=== PATIENT | female | born 1980 | race Caucasian/White ===

== ENCOUNTER 2020-08-15 11:07 | Outpatient (REF) | payer OTHER, SELFPAY | END 2020-08-15 11:08 | disposition home or self-care (01) | LOC: HO.LAB 11:07 | PROVIDERS: PCP Internal Medicine; Visit Provider Internal Medicine | DX: Z20.822 Contact with and (suspected) exposure to COVID-19 (principal) | CPT/HCPCS: 36415; C9803; U0003 ==

== ENCOUNTER 2024-12-14 13:22 | Emergency (ER) | payer OTHER, SELFPAY ==
[2024-12-14] VITALS (10 sets, daily range): BP systolic 105–160; BP diastolic 53–110; PULSE 78–110; RESP 16–18; TEMP 36.5–37.2; O2SAT 96–100; BMI 40.2
--- NOTE | ~2024-12-14 | CT_ITS ---
CLINICAL HISTORY: headcahe, lightheaded dizzy, N CT head without contrast Comparison: None Findings: No intra-axial mass, midline shift, hydrocephalus, or acute hemorrhage. No significant atrophy-like change or white matter disease. The visualized paranasal sinuses and mastoid air cells are normal. The orbits are within normal limits. There is no acute skull fracture. IMPRESSION: 1. No acute intracranial findings. This document has been electronically signed by: Hortensia Vail MD on 12/14/2024 17:59:35
--- NOTE | ~2024-12-14 | XR_ITS ---
EXAMINATION: XR CHEST 1 VIEW HISTORY: Lightheadedness/fatigue COMPARISON: There are no prior studies for comparison. FINDINGS: A single AP portable view of the chest performed at 2:33 PM is submitted. The lungs are expanded and clear. There is no pleural effusion, pneumothorax, or pulmonary vascular congestion. The heart is normal in size. The bones are intact. XR/XR chest 1V IMPRESSION: Clear lungs. Electronically signed by: Radames Pierre MD 12/14/2024 02:50 PM EDT
--- NOTE | 2024-12-14 13:34 | ECG_ITS ---
Test Reason : DIZZINESS Blood Pressure : */* mmHG Vent. Rate : 99 BPM Atrial Rate : 99 BPM P-R Int : 134 ms QRS Dur : 58 ms QT Int : 358 ms P-R-T Axes : 12 31 51 degrees QTcB Int : 459 ms Normal sinus rhythm Cannot rule out Anterior infarct , age undetermined Abnormal ECG When compared with ECG of 14-Feb-2014 22:39, T wave inversion no longer evident in Inferior leads Referred By: Generic ED Physician Electronically Signed By: DAWIT BARON MD
[2024-12-14] MEDS: 0.9 % Sodium Chloride 1,000 ML 999 ML IV ×2 (14:08→16:00)
[2024-12-14] MEDS: Meclizine HCl 25 MG TABLET PO (14:15)
[2024-12-14 14:26] LABS: Glucose, Whole Blood 262 mg/dL (60-115)
--- NOTE | 2024-12-14 14:39 | ED_ITS ---
HPI - General Adult General Chief complaint: Dizziness Stated complaint: WEAKNESS DIZZINESS Time Seen by Provider: 12/14/24 13:37 Source: patient, EMS, RN notes reviewed and old records reviewed Mode of arrival: EMS History of Present Illness ED Provider: Noa Luu PA-C HPI narrative: 44-year-old female with no significant past medical history presenting to the ED via EMS complaining of sudden onset palpitations, fatigue, lightheadedness, headache, neck pain, abdominal discomfort and diarrhea x this afternoon. States she felt like her blood pressure was elevated and took 2 pills of 25 mg of Metoprolol. States she was previously prescribed metoprolol for palpitations. Denies vision change or loss, syncope, room spinning dizziness, CP/SOB, vomiting, dysuria/hematuria Related Data Allergies Allergy/AdvReac Type Severity Reaction Status Date / Time No Known Allergies Allergy Verified 12/14/24 13:31 Review of Systems 2 Review of Systems: Yes all other systems are reviewed and are negative Constitutional: Constitutional: Reports as per HPI Neurologic: Denies Abnormal speech present [facility] Past Medical History Attestation statement: The following information was validated with the patient. Source: old records reviewed Social History Social History Advance Directives: No Advance Directives Information Provided: Yes Do you have a plan to hurt others: No Plan Physical Exam ED Vital Signs: Vital Signs - 24 hr 12/14/24 13:28 12/14/24 14:03 12/14/24 14:09 Temperature 97.7 F Pulse Rate 96 94 95 Respiratory Rate 16 Blood Pressure 106/68 112/53 L 110/64 Pulse Oximetry 96 Oxygen Delivery Method Room Air 12/14/24 14:15 12/14/24 16:35 12/14/24 16:36 Temperature 98.9 F Pulse Rate 98 90 91 Respiratory Rate 16 Blood Pressure 109/56 L 121/80 123/84 Pulse Oximetry 100 Oxygen Delivery Method Room Air 12/14/24 16:40 12/14/24 16:44 Temperature Pulse Rate 92 86 Respiratory Rate Blood Pressure 117/80 118/70 Pulse Oximetry Oxygen Delivery Method BMI result Body Mass Index 40.2 Const General: cooperative, healthy appearing, no acute distress and anxious Orientation/consciousness: patient oriented x3 Limitations: no limitations HENMT Head: Yes normal to inspection and Yes atraumatic Ears: hearing grossly normal bilaterally General nose exam: Normal external nose present Face and sinus: Yes normal facial exam Mouth: Normal oral and palatal mucosa present Throat: Yes posterior oropharynx normal Eyes General: appearance normal, both eyes and all related structures Pupils: Equal, round and reactive pupils present EOM: EOMs intact bilaterally Neck Neck: Yes normal visual inspection and Yes no meningeal signs Resp Effort & Inspection: normal respiratory effort and no respiratory distress Auscultation: clear to auscultation bilaterally, no crackles, no rhonchi and no wheezes Cardio Rate: regular rate Heart sounds: S1 normal heart sound present and S2 normal heart sound present GI Inspection: Yes normal to inspection Palpation (GI): Soft to palpation, nontender, no guarding and not rigid General: Yes no CVA tenderness Back/Spine/Pelvis Back: no CVA tenderness Skin Rashes: no rashes Wounds: no wounds Neuro General: patient oriented x3, gait normal (No ataxia), tone normal, moves all extremities, no meningeal signs, no focal motor deficits and CN's II-XI intact bilaterally Cranial nerves: Yes CN's II-XII intact bilaterally and Yes Equal, round and reactive pupils present Cognition (Neuro): normal cognition Speech: No Abnormal speech present Gait exam (Neuro): Normal gait present Motor exam (neuro): 5/5 motor strength present throughout, Pronator motor function not present and no tremor noted Coordination: [id number] test normal Romberg Test: Negative Extrem General: Yes normal to inspection and Yes no pedal edema Course Course Course Narrative: -1554--leukocytosis of 22.2 > appears acute on chronic with progressive increasing leukocytosis since 2019 > denies any steroid use. Will refer to hematology for further workup. No evidence of infection at this time. Low suspicion for severe sepsis -labs otherwise reassuring -SARs negative XR chest 1V IMPRESSION: Clear lungs. > patient ambulating in the ED without difficulty. Reports symptomatic improvement at present, asymptomatic. -orthostatic vital signs negative -repeat troponin with additional increase to 7.7 > will obtain additional repeat -UA contaminated and not infected. negative CT head/brain wo IV con IMPRESSION: 1. No acute intracranial findings. -1900--ED care transferred to ADAMA Tomlinson pending repeat troponin and anticipated discharge Reevaluation(s) Reevaluation #1: Jayashree Tomlinson PA-C: Patient Sign Out occurred on at 630 pm. After a detailed discussion of the patient's case, care was transferred from Noa Luu PA-C to Jayashree Tomlinson PA-C pending last troponin. Although the 3rd troponin is detectable this is not significant for ischemia or above abnormal value. Patient is stable to be discharged home has follow up in place no changes to plan. . Time: 19:12 Medications Administered Discontinued Medications Generic Name Dose Route Start Last Admin Trade Name Kenny PRN Reason Stop Dose Admin Sodium Chloride 1,000 mls @ 999 mls/hr 12/14/24 14:15 12/14/24 15:09 Ns IV 12/14/24 15:15 Infused .Q1H1M KIN Infusion Sodium Chloride 1,000 mls @ 999 mls/hr 12/14/24 16:00 12/14/24 16:00 Ns IV 12/14/24 17:00 999 mls/hr .Q1H1M KIN Administration Meclizine HCl 25 mg 12/14/24 14:03 12/14/24 14:15 Meclizine Hcl 25 Mg Tablet PO 12/14/24 14:04 25 mg ONCE ONE Administration Medical Decision Making Medical Decision Making MDM Narrative: 44-year-old female with no significant past medical history presenting to the ED via EMS complaining of sudden onset palpitations, fatigue, lightheadedness, headache, neck pain, abdominal discomfort and diarrhea x this afternoon. On exam vital signs stable, NAD, anxious, no focal neuro deficits, lungs CTA, abdomen is soft and nontender. Concern for atypical ACS vs gastroenteritis vs metabolic abnormalities. Lower suspicion for ICH, CVA/TIA, PE, appendicitis/diverticulitis Plan: EKG, labs, UA, CXR, head CT, orthostatics, viral testing, IVF, meclizine, re-evaluate Please refer to course for remaining clinical decision making, interpretation of labs/imaging results, and discussions with consultants and/or family members. Differential Diagnosis Differential Diagnoses: The differential diagnosis associated with the presentation includes As above Admission/Observation Consideration of admission/observation: Escalation of care including admission/observation considered Lab Data MDM Lab Attestation statement: I reviewed the patient's lab results. 12/14/24 14:23 12/14/24 14:23 Labs: Lab Results 12/14/24 12/14/2425 Range/Units 14:07 14:14 14:23 WBC 22.2 H (4.8-10.8) X10*3/uL RBC 4.75 (4.20-5.50) X10*6/uL Hgb 14.0 (12.0-16.0) g/dl Hct 43.5 (37.0-47.0) % MCV 91.6 (80.0-98.0) fL MCH 29.5 (27.0-33.0) pg MCHC 32.2 (31.0-35.0) g/dl RDW 13.2 (11.0-16.0) % Plt Count 189 (160-400) X10*3/uL MPV 11.4 (9.4-12.3) fL Immature Gran % (Auto) 0.8 H (0.0-0.4) % Neut % (Auto) 85.5 H (45-73) % Lymph % (Auto) 10.8 L (20-40) % [place] % (Auto) 2.2 (2-11) % Eos % (Auto) 0.4 (0-4) % Baso % (Auto) 0.3 (0-2) % Lymph # (Auto) 2.4 (1.2-4.9) X10*3/uL [place] # (Auto) 0.5 (0.1-1.2) X10*3/uL Eos # (Auto) 0.1 (0.0-0.4) X10*3/uL Baso # (Auto) 0.1 (0.0-0.2) X10*3/uL Abs Immat Gran (auto) 0.17 H (0.00-0.03) X10*3/uL Absolute Neuts (auto) 19.0 H (2.0-8.3) x10*3/uL Absolute Nucleated RBC 0.000 (0.0-0.012) X10*3/uL Nucleated RBC % (auto) 0.0 (0.0-0.2) /100WBC Sodium 140 (135-145) mmol/L Potassium 3.5 (3.3-5.1) mmol/L Chloride 104 (96-108) mmol/L Carbon Dioxide 19 L (22-29) mmol/L Anion Gap 21 H (12-20) BUN 13 (9-16) mg/dL Creatinine 1.25 (0.5-1.4) mg/dL Estim Creat Clear Calc 60.4 Estimated GFR 46 POC Glucose 262 H (60-115) mg/dL Random Glucose 258 H (60-115) mg/dL Calcium 9.1 (8.4-10.2) mg/dL Magnesium 2.2 (1.6-2.6) mg/dL Total Bilirubin 0.4 (0.0-1.0) mg/dL Direct Bilirubin 0.1 (0.0-0.5) mg/dL AST 23 (5-31) U/L ALT 10 (0-31) U/L Alkaline Phosphatase 68 (39-117) U/L Troponin I High Sens < 2.7 (<3.5-17.0) ng/L Total Protein 7.7 (6.5-8.0) g/dL Albumin 3.9 (3.5-5.0) g/dL Lipase 20 (8-78) U/L TSH 1.26 (0.32-4.0) uIU/mL Urine Color Urine Appearance Urine pH (5.0-9.0) Ur Specific [place] (1.005-1.025) Urine Protein (Neg-Trace) mg/dL Urine Glucose (UA) (Negative) mg/dL Urine Ketones (Negative) mg/dL Urine Blood (Negative) Urine Nitrite (Negative) Ur Leukocyte Esterase (Negative) Urine RBC (0-2) /HPF Urine WBC (0-5) /HPF Ur Squamous Epith Cells (0-2) /HPF Urine Bacteria (None Seen) Hyaline Casts (0-2) /LPF Urine Test (NEGATIVE) Influenza Type A (PCR) NEGATIVE (Negative) Influenza Type B (PCR) NEGATIVE (Negative) RSV RNA Qual (PCR) NEGATIVE (Negative) SARS-CoV-2 RNA (RT-PCR) NEGATIVE (Negative) 12/14/24 12/14/24 12/14/24 Range/Units 15:30 16:33 18:28 WBC (4.8-10.8) X10*3/uL RBC (4.20-5.50) X10*6/uL Hgb (12.0-16.0) g/dl Hct (37.0-47.0) % MCV (80.0-98.0) fL MCH (27.0-33.0) pg MCHC (31.0-35.0) g/dl RDW (11.0-16.0) % Plt Count (160-400) X10*3/uL MPV (9.4-12.3) fL Immature Gran % (Auto) (0.0-0.4) % Neut % (Auto) (45-73) % Lymph % (Auto) (20-40) % [place] % (Auto) (2-11) % Eos % (Auto) (0-4) % Baso % (Auto) (0-2) % Lymph # (Auto) (1.2-4.9) X10*3/uL [place] # (Auto) (0.1-1.2) X10*3/uL Eos # (Auto) (0.0-0.4) X10*3/uL Baso # (Auto) (0.0-0.2) X10*3/uL Abs Immat Gran (auto) (0.00-0.03) X10*3/uL Absolute Neuts (auto) (2.0-8.3) x10*3/uL Absolute Nucleated RBC (0.0-0.012) X10*3/uL Nucleated RBC % (auto) (0.0-0.2) /100WBC Sodium (135-145) mmol/L Potassium (3.3-5.1) mmol/L Chloride (96-108) mmol/L Carbon Dioxide (22-29) mmol/L Anion Gap (12-20) BUN (9-16) mg/dL Creatinine (0.5-1.4) mg/dL Estim Creat Clear Calc Estimated GFR POC Glucose (60-115) mg/dL Random Glucose (60-115) mg/dL Calcium (8.4-10.2) mg/dL Magnesium (1.6-2.6) mg/dL Total Bilirubin (0.0-1.0) mg/dL Direct Bilirubin (0.0-0.5) mg/dL AST (5-31) U/L ALT (0-31) U/L Alkaline Phosphatase (39-117) U/L Troponin I High Sens 7.7 D 11.9 D (<3.5-17.0) ng/L Total Protein (6.5-8.0) g/dL Albumin (3.5-5.0) g/dL Lipase (8-78) U/L TSH (0.32-4.0) uIU/mL Urine Color Dark Yellow Urine Appearance Cloudy Urine pH 6.5 (5.0-9.0) Ur Specific [place] 1.020 (1.005-1.025) Urine Protein 300 (3+) H (Neg-Trace) mg/dL Urine Glucose (UA) 100 H (Negative) mg/dL Urine Ketones Trace (Negative) mg/dL Urine Blood Negative (Negative) Urine Nitrite Negative (Negative) Ur Leukocyte Esterase Trace H (Negative) Urine RBC 0-2 (0-2) /HPF Urine WBC 0-5 (0-5) /HPF Ur Squamous Epith Cells 11-20 (0-2) /HPF Urine Bacteria 1+ (None Seen) Hyaline Casts >20 (0-2) /LPF Urine Test NEGATIVE (NEGATIVE) Influenza Type A (PCR) (Negative) Influenza Type B (PCR) (Negative) RSV RNA Qual (PCR) (Negative) SARS-CoV-2 RNA (RT-PCR) (Negative) Independent Interpretation I performed an independent interpretation of an: EKG (My interpretation EKG normal sinus rhythm rate of 99. OH interval 134. QTC 459. T-wave inversion no longer evident in inferior leads. No STEMI ), Plain X-Ray and CT Scan Radiology Impression Discussion of test interpretation with radiology: I have reviewed the radiologist's reading. Independent Historian Clinical information obtained from an independent historian. History obtained from or confirmed by: EMS External Record Review External record reviewed: Inpatient record, Office record, Outpatient record, Prior outpatient labs, Prior outpatient radiology, Primary care record and Outside ED record Tests considered The following testing was considered but not selected: As above Prescription Management I considered prescription management with: Other Chronic Conditions Patient?s care impacted by: Other Social Determinants Patient?s care significantly limited by Social Determinants of Health including: Other Social Determinant of Health Discharge Plan Discharge Clinical Impression: Leukocytosis, Lightheadedness, Fatigue, Palpitations Instructions: Heart Palpitations (DC), Leukocytosis (ED), Lightheadedness (ED) Additional Instructions: Your workup is remarkable for an elevated white blood cell count, this has been progressive since 2019. You need to follow-up with Heme-Onc specialist for further management. Call to make an appointment. Otherwise your workup is unremarkable. Does cat scan of your head and chest x- ray are reassuring Please stay hydrated at home, drink plenty of fluids Please have close follow up with her doctor If her symptoms persist or worsen, you have constant worsening lightheadedness, dizziness, headache, chest pain, shortness of breath, abdominal pain return to the emergency department Referrals: [facility] [place] Oncology/Hematology [Provider Group] Physician,Unknown J [Primary Care Provider] - 3 days Print Language: Sami
[2024-12-14 14:54] LABS: Influenza A PCR NEGATIVE (Negative); Influenza B PCR NEGATIVE (Negative); Resp Syncy Virus RNA Qual PCR NEGATIVE (Negative); SARS COV2 PCR INHOUSE NEGATIVE (Negative)
[2024-12-14 14:56] LABS: MANUAL DIFF FLAG NO
[2024-12-14 14:59] LABS: Basophils Absolute Auto 0.1 X10*3/uL (0.0-0.2); Basophils Percent Auto 0.3 % (0-2); Eosinophils Absolute Auto 0.1 X10*3/uL (0.0-0.4); Eosinophils Percent Auto 0.4 % (0-4); Hematocrit 43.5 % (37.0-47.0); Imm Gran Abs Auto 0.17 X10*3/uL (0.00-0.03); Imm Gran Pct Auto 0.8 % (0.0-0.4); Lymphocytes Absolute Auto 2.4 X10*3/uL (1.2-4.9); Lymphocytes Percent Auto 10.8 % (20-40); Mean Corpuscular HGB Conc 32.2 g/dl (31.0-35.0); Mean Corpuscular Hemoglobin 29.5 pg (27.0-33.0); Mean Corpuscular Volume 91.6 fL (80.0-98.0); Mean Platelet Volume 11.4 fL (9.4-12.3); Monocytes Absolute Auto 0.5 X10*3/uL (0.1-1.2); Monocytes Percent Auto 2.2 % (2-11); Neutrophils Percent Auto 85.5 % (45-73); Platelet Count 189 X10*3/uL (160-400); Red Blood Count 4.75 X10*6/uL (4.20-5.50); Red Cell Distribution Width 13.2 % (11.0-16.0); White Blood Count 22.2 X10*3/uL (4.8-10.8)
[2024-12-14 15:22] LABS: Alanine Aminotransferase 10 U/L (0-31); Albumin Level 3.9 g/dL (3.5-5.0); Anion Gap 21 (12-20); Aspartate Amino Transferase 23 U/L (5-31); Bilirubin Direct 0.1 mg/dL (0.0-0.5); Bilirubin Total 0.4 mg/dL (0.0-1.0); Blood Urea Nitrogen 13 mg/dL (9-16); Calcium 9.1 mg/dL (8.4-10.2); Carbon Dioxide 19 mmol/L (22-29); Chloride 104 mmol/L (96-108); Creatinine Clr Calc Pharmacy 60.4; Estimated Glomerular Filt Rate 46; Glucose Random 258 mg/dL (60-115); Lipase 20 U/L (8-78); Magnesium 2.2 mg/dL (1.6-2.6); Potassium 3.5 mmol/L (3.3-5.1); Sodium 140 mmol/L (135-145); Total Protein 7.7 g/dL (6.5-8.0); Troponin-I High Sensitivity < 2.7 ng/L (<3.5-17.0)
[2024-12-14 15:40] LABS: Appearance Urine Cloudy; Color Urine Dark Yellow; Glucose Urine UA 100 mg/dL (Negative); Leukocyte Esterase Urine Trace (Negative); Nitrite Urine Negative (Negative); PH 6.5 (5.0-9.0); UMIC TRIGGER UACC YES; Urine Blood Negative (Negative); Urine Ketones Trace mg/dL (Negative); Urine Protein 300 (3+) mg/dL (Neg-Trace)
[2024-12-14 15:41] LABS: UPreg QC Valid YES; Urine Pregnancy NEGATIVE (NEGATIVE)
[2024-12-14 15:51] LABS: Bacteria Urine 1+ (None Seen); Hyaline Casts Urine >20 /LPF (0-2); RBC Urine 0-2 /HPF (0-2); WBC Urine 0-5 /HPF (0-5)
[2024-12-14 15:58] LABS: Alkaline Phosphatase 68 U/L (39-117)
[2024-12-14 16:14] LABS: TSH reflex Free T4 1.26 uIU/mL (0.32-4.0)
[2024-12-14 16:55] LABS: Troponin-I High Sensitivity 7.7 ng/L (<3.5-17.0)
[2024-12-14 18:54] LABS: Troponin-I High Sensitivity 11.9 ng/L (<3.5-17.0)
[2024-12-14] MEDS: Acetaminophen 325 MG TABLET 650 MG PO (19:48)
== END 2024-12-14 19:55 | disposition home or self-care (01) ==
PROVIDERS: Physician Assistant; Emergency Provider Emergency Medicine
DX: D72.829 Elevated white blood cell count, unspecified (principal); R42 Dizziness and giddiness; R53.83 Other fatigue; R00.2 Palpitations; M54.2 Cervicalgia; R10.9 Unspecified abdominal pain; R19.7 Diarrhea, unspecified; Z79.899 Other long term (current) drug therapy; Z03.818 Encounter for observation for suspected exposure to other biological agents ruled out
CPT/HCPCS: 0241U; 36415; 70450; 71045; 80048; 80076; 81001; 81025; 82947; 83690; 83735; 84443; 84484; 85025; 93005; 96360; 96361; 99285

== ENCOUNTER → 2024-12-14 13:34 | Outpatient (BNV) | payer OTHER, SELFPAY | PROVIDERS: Emergency Provider Emergency Medicine; Visit Provider Internal Medicine Cardiovascular Disease | DX: R94.31 Abnormal electrocardiogram [ECG] [EKG] (principal); R42 Dizziness and giddiness | CPT/HCPCS: 93010 ==

== ENCOUNTER → 2024-12-14 14:03 | Outpatient (BNV) | payer OTHER, SELFPAY | PROVIDERS: Emergency Provider Emergency Medicine; Visit Provider Radiology Diagnostic Radiology | DX: R51.9 Headache, unspecified (principal); R42 Dizziness and giddiness; R11.0 Nausea; R53.83 Other fatigue | CPT/HCPCS: 70450; 71045 ==